=== PATIENT | female | born 1980 | race Caucasian/White ===

== ENCOUNTER 2021-07-09 10:11 | Outpatient (CLI) | payer OTHER, SELFPAY ==
--- NOTE | ~2021-07-09 | US_ITS ---
EXAMINATION: US pelvic complete w TV EXAM DATE: 07/09/2021 10:34 INDICATION: N92.0 - Excessive and frequent menstruation with regular ... TECHNIQUE: Pelvic transabdominal and transvaginal sonogram was performed. There are multiple graysca le and Doppler images available for interpretation. There is no prior study for comparison. FINDINGS: Uterus measures 8.0 x 3.7 x 4.6 cm, and is morphologically normal. Endometrial stripe stefano sures 10 mm, within normal limits. There is no free pelvic fluid. Right adnexa: The ovary measures 1.7 x 2.1 x 1.9 cm and is morphologically normal. Ovarian vascular f low confirmed. Left adnexa: The ovary is not identified. There is no adnexal mass. IMPRESSION: 1. Unremarkable pelvic ultrasound exam. Reviewed, dictated and finalized at location B. DRIVER
== END 2021-07-09 10:12 ==
PROVIDERS: PCP Obstetrics & Gynecology; Visit Provider Obstetrics & Gynecology
DX: N92.0 Excessive and frequent menstruation with regular cycle (principal)
CPT/HCPCS: 76830; 76856

== ENCOUNTER 2021-07-09 11:26 | Outpatient (CLI) | payer OTHER, SELFPAY ==
[2021-07-09 12:04] LABS: Hematocrit 42.8 % (37.0-47.0); Hemoglobin 14.2 g/dL (12.0-15.0); Mean Corpuscular HGB Conc 33.2 g/dl (32-36); Mean Corpuscular Hemoglobin 30.3 pg (26-34); Mean Corpuscular Volume 91.3 fl (80-100); Mean Platelet Volume 9.4 fl (7.4-10.4); Platelet Count Result 339 k/mm3 (150-375); Red Blood Count 4.69 M/mm3 (4.2-5.4); Red Cell Distribution Width 12.7 % (11.5-14.5); White Blood Count 10.5 K/mm3 (4.5-10.0)
== END 2021-07-09 11:27 | disposition home or self-care (01) ==
LOC: ANHLAB 11:29
PROVIDERS: PCP Obstetrics & Gynecology; Visit Provider Obstetrics & Gynecology
DX: N92.0 Excessive and frequent menstruation with regular cycle (principal)
CPT/HCPCS: 36415; 84443; 85027

== ENCOUNTER 2021-08-10 01:10 | Day surgery (SDC) | payer OTHER, SELFPAY ==
[2021-07-31 14:12] VITALS: BMI 28.6
--- NOTE | 2021-07-31 14:18 | PC.NURSE ---
Report to the Outpatient Waiting Room, entrance under the green pavilion located off [facility], at time 1100 on date 08/10/21. OR Time: 1300. - You and your visitor will be asked a series of questions to screen for COVID 19 for your protection. - A mask is required within the hospital. - Only one visitor is allowed at this time. Patient visitors will be guided where to wait when not with patient. Preoperative COVID Testing Requirements: No COVID Test needed if: (proof is required; if not received patient will have Rapid Test prior to entry) - Patient has received COVID Vaccine at least 14 days prior to procedure date or - Patient has positive COVID test result within last 90 days of surgery date. COVID Test needed if above criteria is not met If not COVID vaccinated a COVID test must be conducted within 72 hours of surgery and patient is asked to isolate self from time of testing until procedure. You will go to the [facility] for your COVID testing. The [facility] is located at the corner of [address] [facility]. You will only be called if COVID results are positive and your surgeon may reschedule your elective surgery date. Patients may have clear liquids (water, carbonated beverages, clear teas, apple juice) until 3 hours prior to surgery with a maximum of 20 ounces. - No food from midnight until time of surgery - Infants may have breast milk until 4 hours before surgery, infant formula 6 hours prior to surgery. - Children will be allowed to drink immediately following surgery. If applicable, please bring a bottle or sippy cup to assist with drinking. Juice, water, soda, and popsicles are readily available. For infants on formula, please bring formula the day of surgery. Pacifiers are allowed. Take the following medications with a SIP of water the morning of surgery: NONE Medications to discontinue per physician: N/A Date to take last dose: N/A Please no make-up, nail botswan[place], hairspray, perfume, deodorant, or body powder the day of surgery. No jewelry (including any body piercings) or valuables the day of surgery, leave them at home. Please take a shower or bath the night before, or the morning of, surgery with an antibacterial soap. Wear comfortable, loose fitting clothing. Children are encouraged to wear pajamas. - Jewelry must be removed prior to entering the operating room. Rings and piercings that are not removed may be cut off. - The hospital will not accept responsibility for valuables. - Please leave all valuables, including medications, at home the day of surgery. If you are going home after surgery, a licensed race car driver must drive you home. - NO public transportation without another adult. - We recommend that an adult stay with you for 24 hours following discharge. - We also recommend that you do not drive, make important decision, drink alcoholic beverages, or take any drugs that were not prescribed by your health care provider for at least 24 hours after your discharge time. For Pediatric surgeries, we recommend two adults accompany the child home (only one inside the building at this time). Follow any additional instructions given to you from your surgeon. Telephone instructions given to JEREMIAH DILLON and asked if any additional questions and then verbalized understanding. Patient advised to call surgeon office or pre surgery nurse liaison [phone] if any additional questions.
--- NOTE | 2021-08-06 15:44 | PM.IMHP ---
H&P: HPI History of Present Illness Date/Time: 08/06/21 15:44 monthly cycles lasting 6-7 days, very heavy the first couple days with severe cramping Chief Complaint: menorrhagia Review of Systems Review of Systems: All systems reviewed & are unremarkable except as noted in HPI and below PMFSH Past Medical History Medical History Allergies Gallbladder & bile duct stone with obstruction GERD (gastroesophageal reflux disease) History of blood transfusion 2003, with c/s Surgical History Surgical History History of cholecystectomy 2007? Previous section x2 Family History Family History Mother Cervical cancer Diabetes mellitus Hypertension Thyroid disorder Grandparent Leukemia grandmother Lung cancer Multiple myeloma grandfather Non-Hodgkin lymphoma grandfather Cerebrovascular accident Heart problem Sibling Hypertension Diabetes mellitus Social History Social History Smoking status: Current some day smoker Tobacco type: cigarettes Alcohol intake: current Alcohol use details: 2/MONTH Substance use: never Substance use type: does not use Spiritual care concerns: No Meds Home Medications and Allergies Home Medications Medication Instructions Recorded Confirmed Type fexofenadine 60 mg tablet 180 mg PO DAILY 07/24/20 07/31/21 History omeprazole 40 mg capsule,delayed 40 mg PO DAILY #30 cap 12/16/20 07/31/21 Rx release Allergies Allergy/AdvReac Type Severity Reaction Status Date / Time No Known Allergies Allergy Verified 07/31/21 14:11 Exam Const: General: healthy appearing, no acute distress, alert and awake Resp: Auscultation: clear to auscultation bilaterally Cardio: Rate: regular rate Rhythm: regular rhythm GI: Inspection: non-distended GI Palp: Yes Soft to palpation and No Tenderness to palpation present (GI) : Bimanual exam- vagina & uterus: normal bimanual exam, uterine size normal, uterine mobility normal, non-tender and soft Bimanual Exam- Adnexa, other: normal adnexae, no masses and No adnexal tenderness Extrem: General: no pedal edema and no calf tenderness Psych: Mental Status: mental status grossly normal Assessment and Plan Assessment and plan (1) Menorrhagia: Code(s): N92.0 - Excessive and frequent menstruation with regular cycle Status: Acute Assessment and Plan: She signed consent after risks, benefits, complications, and alternatives discussed for D&C, hysteroscopy, and endometrial ablation. She expressed understanding and wishes to proceed. s/p vasectomy
[2021-08-10] MEDS: LACTATED RINGERS 1,000 ML 30 ML IV CONT (11:34)
[2021-08-10 11:35] VITALS: BP 138/89; PULSE 100; RESP 16; TEMP 36.4; O2SAT 100
--- NOTE | 2021-08-10 12:11 | WPDHPUPDATE1 ---
History and Physical Update Update Date/Time: 08/10/21 12:11 History and Physical has been reviewed, including an updated exam of the patient. There are NO changes in the patient's condition. Risks, benefits, and alternatives have been discussed and questions answered. Patient agrees to proceed with procedure.
--- NOTE | 2021-08-10 12:17 | P.PNAN_ITS ---
Anes - Initial Pre Proc Eval Procedure: Operation Date: 08/10/21 13:00 Proposed Procedures p Hysteroscopy,Dilation and Curettage with Betty Endometrial Ablation - Altagracia Sinclair MD Date/Time: 08/10/21 12:17 Surgeon: Altagracia Sinclair MD Pre Op Diagnosis: menorrhaghia Patient Data Age: 41 Gender: F Height: 1.7 m Weight: 85.1 kg Last Vital Signs Temp 36.4 C 08/10/21 11:35 Pulse 100 08/10/21 11:35 Resp 16 08/10/21 11:35 BP 138/89 08/10/21 11:35 Pulse Ox 100 08/10/21 11:35 Allergies Allergy/AdvReac Type Severity Reaction Status Date / Time No Known Allergies Allergy Verified 08/10/21 11:14 Home Medications Medication Instructions Recorded Confirmed Type fexofenadine 60 mg tablet 180 mg PO DAILY 07/24/20 08/10/21 History omeprazole 40 mg capsule,delayed 40 mg PO DAILY #30 cap 12/16/20 08/10/21 Rx release Patient hx anesthesia problems: none Family hx anesthesia problems: none Results Review: All pre-operative results and documents have been reviewed as part of the pre-operative evaluation. [facility] Past Medical History Medical History Allergies Gallbladder & bile duct stone with obstruction GERD (gastroesophageal reflux disease) History of blood transfusion 2003, with c/s Surgical History Surgical History History of cholecystectomy 2007? Previous section x2 Family History Family History Mother Cervical cancer Diabetes mellitus Hypertension Thyroid disorder Grandparent Leukemia grandmother Lung cancer Multiple myeloma grandfather Non-Hodgkin lymphoma grandfather Cerebrovascular accident Heart problem Sibling Hypertension Diabetes mellitus Social History Social History Smoking status: Current some day smoker Tobacco type: cigarettes Alcohol intake: current Alcohol use details: 2/MONTH Substance use: never Substance use type: does not use Living arrangements: with family Spiritual care concerns: No Anes - Eval Final PreProcedure Day of Procedure 08/10/21 12:17 Patient weight: overweight Heart: regular rate and rhythm Lungs: clear to auscultation Airway: Mallampati scale Neurological: alert and oriented Last oral intake: >/= 8 hours ASA classification: II Emergent: no Anesthetic plan: proceed Anesthesia type and monitoring: general GIVS and standard monitoring Results Review: All pre-operative results and documents have been reviewed as part of the pre-operative evaluation. Informed Consent: The patient's anesthetic plan and its attendant risks and benefits were discussed with the patient/family/POA. Questions were solicited and answers provided to the satisfaction of the patient/family/POA.
[2021-08-10 13:53] VITALS: BP 124/76; PULSE 94; RESP 16; O2SAT 95
--- NOTE | 2021-08-10 13:55 | W.PM.PROC2 ---
Procedure Note - Detailed Date of Procedure 08/10/21 Pre-op Diagnosis menorrhaghia Post-op Diagnosis same Procedure Performed D&C, hysteroscopy, endometrial ablation Surgeon Altagracia Sinclair MD Anesthesia MAC Indications Heavy regular cycles Findings normal endometrial cavity Description of Procedure She was taken to the operating room where she was sedated and placed in the dorsal lithotomy position. A speculum was placed in the vagina. The anterior lip of the cervix was grasped with single-tooth tenaculum. The uterus sounded to 8 cm. The cervix was dilated to allow passage of the hysteroscope. Normal endometrial cavity was visualized with both tubal ostia identified. A sharp curettage was performed with the curettings sent for pathologic evaluation. A 8. Hegar dilator was used to measure the endocervical canal at 3 cm, yielding a cavity length of 5 cm. The Betty device was introduced. The cavity assessment passed. The cycle ran for 2 minutes. The device was removed. Second look was taken with the hysteroscope, which revealed an excellent appearing ablation. The hysteroscope was removed. The tenaculum was removed from the cervix. Both tenaculum sites were bleeding slightly. Pressure was held with ring forceps and Allis clamp until excellent hemostasis was assured. All instruments were removed from the vagina. She tolerated the procedure well. Sponge, lap, and instrument counts were correct x2. She was taken to the recovery room in stable condition. Estimated Blood Loss 10 Drains No Packing No Pathology yes Complications No immediate complications Condition stable Disposition PACU
[2021-08-10 14:05] VITALS: BP 126/82; BP 138/84; PULSE 60; PULSE 90; RESP 16; O2SAT 95
[2021-08-10 14:35] VITALS: BP 133/86; PULSE 77; RESP 16; O2SAT 97
[2021-08-10 15:05] VITALS: BP 138/84; PULSE 60; RESP 16
== END 2021-08-10 14:50 | disposition home or self-care (01) ==
PROVIDERS: PCP Internal Medicine; Visit Provider Obstetrics & Gynecology
PROC: 0U5B8ZZ Destruction of Endometrium, Via Natural or Artificial Opening Endoscopic (ICD-10-PCS; CPT 58563; principal; 2021-08-10 13:00)
DX: N92.0 Excessive and frequent menstruation with regular cycle (principal); K21.9 Gastro-esophageal reflux disease without esophagitis; F17.210 Nicotine dependence, cigarettes, uncomplicated
CPT/HCPCS: 58563; 88305; A9270; J1100; J2250; J2270; J2405; J2704; J7120

== ENCOUNTER 2022-06-29 17:23 | Emergency (ER) | payer OTHER, SELFPAY ==
[2022-06-29 17:35] VITALS: BP 128/82; PULSE 82; RESP 16; TEMP 36.4; O2SAT 100
--- NOTE | 2022-06-29 19:04 | ED.GENADULT ---
HPI - General Adult General Chief complaint: Upper Respiratory Infection Stated complaint: sore throat Source: patient Mode of arrival: ambulatory Limitations: no limitations History of Present Illness HPI narrative: Patient presents for evaluation of sore throat since yesterday. She has had strep pharyngitis in the past and this feels similar. She has experience a fever but denies chills, nausea, vomiting, diarrhea, or respiratory symptoms. No recent sick contacts to her knowledge. She does not smoke. She has been taking ibuprofen and Tylenol for symptoms. No additional complaints or concerns. Related Data Allergies Allergy/AdvReac Type Severity Reaction Status Date / Time No Known Allergies Allergy Verified 06/29/22 18:08 Review of Systems Review of Systems: CONSTITUTIONAL: Reports fever. Denies chills, or sweats. EYES: Denies visual changes, redness, or discharge. ENT:Reports sore throat. Denies rhinorrhea, congestion, or otalgia. CARDIOVASCULAR: Denies chest pain, palpitations, or edema. RESPIRATORY: Denies cough or dyspnea. GASTROINTESTINAL: Denies abdominal pain, nausea, vomiting, or diarrhea. GENITOURINARY: Denies dysuria or hematuria. SKIN: Denies rash or itching. MUSCULOSKELETAL: Denies back pain, joint pain, or myalgia. NEUROLOGIC: Denies headache, numbness, dizziness, or weakness. PSYCHIATRIC: Denies anxiety or depression. [facility] Past Medical History Medical History Allergies Gallbladder & bile duct stone with obstruction GERD (gastroesophageal reflux disease) History of blood transfusion 2003, with c/s Surgical History Surgical History History of cholecystectomy 2007? History of dilation and curettage 08/10/21 History of endometrial ablation 08/10/21 History of hysteroscopy 08/10/21 Previous section x2 Family History Family History Mother Cervical cancer Diabetes mellitus Hypertension Thyroid disorder Grandparent Leukemia grandmother Lung cancer Multiple myeloma grandfather Non-Hodgkin lymphoma grandfather Cerebrovascular accident Heart problem Sibling Hypertension Diabetes mellitus Social History Social History Smoking status: Current every day smoker Tobacco type: cigarettes Alcohol intake: current Alcohol use details: 2/MONTH Substance use: never Substance use type: does not use Spiritual care concerns: No Exam Narrative: GENERAL: Well-appearing, well-nourished, and in no acute distress. HEAD: Normocephalic, atraumatic. EYES: PERRLA and EOMI. ENT: Nares clear, no rhinorrhea or epistaxis. Mucous membranes moist. Bilateral tonsillar swelling with erythema but no exudate. Uvula is midline. Bilateral TMs pearly frey nonbulging NECK: Supple. No adenopathy or masses. No carotid bruits or JVD CHEST: Clear to auscultation. No respiratory distress. No wheezes rales or rhonchi HEART: Regular rate and rhythm. No murmur heard. Normal peripheral pulses. ABDOMEN: Soft, nontender, nondistended, normal active bowel sounds. EXTREMITIES: Normal range of motion. No edema. SKIN: Warm, dry, no rash. NEURO: No focal deficits. Alert and oriented x3. PSYCH: Normal mood and affect. Course Course Emergency Course: This is a 41-year-old female presenting for evaluation of sick symptoms. She has had strep in the past and this feels similar. Strep was negative. Discussed waiting for throat culture but patient would like to be treated today. I think this is reasonable based on her history. Will treat with amoxicillin. Requested Diflucan for after her antibiotics. Will provide script for that as well. Follow-up outpatient for further evaluation and treatment go to the ER for worsening symptoms.
== END 2022-06-29 19:07 | disposition home or self-care (01) ==
PROVIDERS: Emergency Provider Nurse Practitioner; PCP Nurse Practitioner
DX: J02.9 Acute pharyngitis, unspecified (principal); K21.9 Gastro-esophageal reflux disease without esophagitis
CPT/HCPCS: 87081; 87880; 99213; G0463

== ENCOUNTER 2022-10-16 09:11 | Outpatient (CLI) | payer OTHER, SELFPAY ==
[2022-10-16 09:48] LABS: Alanine Aminotransferase 35 U/L (6-35); Albumin Level 4.4 g/dL (3.5-5.1); Alkaline Phosphatase 82 U/L (38-126); Anion Gap 7 mmol/L (8-16); Aspartate Amino Transferase 27 U/L (14-36); Bilirubin,Total 0.5 mg/dL (0.2-1.3); Blood Urea Nitrogen 17 mg/dL (7-17); Calcium 8.9 mg/dL (8.4-10.2); Carbon Dioxide 25 mmol/L (22-30); Chloride 107 mmol/L (98-107); Cholesterol 179 mg/dL (0-200); Estimated Glomerular Filt Rate > 60; Glucose 99 mg/dL (65-110); HDL Direct 49 mg/dL; Potassium 4.2 mmol/L (3.4-5.0); Sodium 139 mmol/L (137-145); Triglycerides 99 mg/dL (<150)
[2022-10-16 09:59] LABS: LDL Cholesterol Direct 99 mg/dL
[2022-10-16 10:32] LABS: Vitamin D 25 Hydroxy 19.2 ng/mL
== END 2022-10-16 09:12 | disposition home or self-care (01) ==
LOC: ANHLAB 09:12
PROVIDERS: PCP Internal Medicine; Visit Provider Nurse Practitioner Family
DX: Z00.00 Encounter for general adult medical examination without abnormal findings (principal); R53.83 Other fatigue; E66.3 Overweight; Z79.899 Other long term (current) drug therapy
CPT/HCPCS: 36415; 80053; 80061; 82306; 84443

== ENCOUNTER 2023-05-27 10:58 | Outpatient (CLI) | payer OTHER, SELFPAY ==
--- NOTE | ~2023-05-27 | US_ITS ---
EXAMINATION: US thyroid DATE: 05/27/2023 11:22 INDICATION: [place]. TECHNIQUE: Multiple ultrasound images of the thyroid were obtained. COMPARISON: None. FINDINGS: The right thyroid lobe measures 6.3 x 1.2 x 1.2 cm. The left thyroid lobe measures 5.2 x 1.6 x 2.0 c m. In the left thyroid lobe, there is a 1.6 cm mixed cystic and solid, hypoechoic, wider than tall n odule with smooth margin without echogenic foci (TI-RADS TR3). IMPRESSION: 1. Thyroid nodule. Thyroid ultrasound is recommended in one year. Reviewed, dictated and finalized at location E.
== END 2023-05-27 10:59 | disposition home or self-care (01) ==
PROVIDERS: PCP Nurse Practitioner Family; Visit Provider Nurse Practitioner Family
DX: E04.1 Nontoxic single thyroid nodule (principal); R23.2 Flushing; R53.83 Other fatigue
CPT/HCPCS: 76536

== ENCOUNTER 2023-08-26 13:20 | Outpatient (CLI) | payer OTHER, SELFPAY ==
[2023-08-26 14:37] LABS: Basophils Absolute Auto 0.1 K/mm3 (0.0-0.1); Basophils Percent Auto 0.5 % (0.2-1.2); Eosinophils Absolute Auto 0.1 K/mm3 (0-0.3); Eosinophils Percent Auto 1.4 % (0-4.4); Hematocrit 42.3 % (37.0-47.0); Hemoglobin 13.5 g/dL (12.0-15.0); Immature Granulocyte Absolute 0.02 K/mm3 (0.00-0.031); Immature Granulocyte Percent A 0.2 % (0-0.5); Lymphocytes Absolute Auto 2.74 K/mm3 (0.9-3.2); Lymphocytes Percent Auto 26.9 % (18.3-44.2); Mean Corpuscular HGB Conc 31.9 g/dl (32-36); Mean Corpuscular Hemoglobin 28.5 pg (26-34); Mean Corpuscular Volume 89.4 fl (80-100); Mean Platelet Volume 9.8 fl (7.4-10.4); Monocytes Absolute Auto 0.7 K/mm3 (0.1-0.6); Monocytes Percent Auto 7.2 % (2.6-8.5); Neutrophils Absolute Auto 6.5 K/mm3 (1.3-6.7); Neutrophils Percent Auto 63.8 % (45.5-73.1); Platelet Count Result 380 k/mm3 (150-375); Red Blood Count 4.73 M/mm3 (4.2-5.4); Red Cell Distribution Width 12.3 % (11.5-14.5); White Blood Count 10.2 K/mm3 (4.5-10.0)
[2023-08-26 15:09] LABS: Free T4 Free Thyroxine 1.09 ng/mL (0.78-2.19)
[2023-08-29 05:04] LABS: Thyroid Peroxidase Antibodies <1 IU/mL (<9)
== END 2023-08-26 13:21 | disposition home or self-care (01) ==
PROVIDERS: PCP Nurse Practitioner Family; Visit Provider Nurse Practitioner Family
DX: R23.2 Flushing (principal); R12 Heartburn; R53.83 Other fatigue; E66.3 Overweight; G47.9 Sleep disorder, unspecified; Z79.899 Other long term (current) drug therapy
CPT/HCPCS: 36415; 84439; 84443; 85025; 86376

== ENCOUNTER 2024-03-19 10:32 | Outpatient (CLI) | payer OTHER, SELFPAY ==
--- NOTE | ~2024-03-19 | US_ITS ---
US pelvic complete w TV Ordering provider: Denise Wesley MD History: . N93.9 - Abnormal uterine and vaginal bleeding, unspecified . Comparison: None. Technique: Transabdominal and endovaginal ultrasound of the pelvis (Doppler ultrasound interrogation techniques used as needed for this exam.) FINDINGS: CERVIX: Normal. UTERUS: Measures 8.4x 4x 5.9 cm in length which is within normal limits and is anteverted. No myomet rial masses. ENDOMETRIUM: Normal in thickness measuring 10 mm. No endometrial masses, cysts or fluid. CUL DE SAC: No free fluid. RIGHT OVARY: Normal in size measuring 1.7x 2x 1.2 cm. Normal echotexture. Doppler vascular flow prese nt. LEFT OVARY: Normal in size measuring 4.3x 2.5x 3.9 cm.. Normal echotexture. Doppler vascular flow pre sent. 2 cysts are seen with the largest measures 2.9 x 2.3 x 2.3 cm. ADNEXA: Normal. No mass. IMPRESSION: Right ovarian cysts. Otherwise, normal pelvic ultrasound. Reviewed, dictated and finalized at location A.
== END 2024-03-19 10:33 | disposition home or self-care (01) ==
LOC: ANHIMG 10:32
PROVIDERS: PCP Nurse Practitioner Family; Visit Provider Obstetrics & Gynecology
DX: N93.9 Abnormal uterine and vaginal bleeding, unspecified (principal); N83.291 Other ovarian cyst, right side
CPT/HCPCS: 76830; 76856

== ENCOUNTER 2024-03-24 08:15 | Emergency (ER) | payer OTHER, SELFPAY ==
[2024-03-24 08:20] VITALS: BP 138/82; PULSE 106; RESP 16; TEMP 36; O2SAT 100
[2024-03-24 08:56] LABS: EDMONONEGPOS Negative; EDSTREPNEGPOS1 Presumptive Negative
--- NOTE | 2024-03-24 08:59 | ED.GENADULT ---
HPI - General Adult General Chief complaint: Upper Respiratory Infection Stated complaint: Fever/Sore Throat/Skin Sore Lip Source: patient Mode of arrival: ambulatory Limitations: no limitations History of Present Illness HPI narrative: Patient presents for evaluation of a sore throat for last 3 days. She reports fever and chills but denies any cough, shortness of breath, nausea, vomiting, diarrhea. No recent sick contacts to her knowledge. She now has blistered lesions to her lower lip. No history of HSV. She does not smoke. She is taking Tylenol for symptoms with mild improvement thereafter. Related Data Allergies Allergy/AdvReac Type Severity Reaction Status Date / Time No Known Allergies Allergy Verified 03/24/24 08:51 Review of Systems Review of Systems: CONSTITUTIONAL: Reports fever and chills. EYES: Denies visual changes, redness, or discharge. ENT: Reports sore throat and blister to lower lip. Denies otalgia CARDIOVASCULAR: Denies chest pain, palpitations, or edema. RESPIRATORY: Denies cough or dyspnea. GASTROINTESTINAL: Denies abdominal pain, nausea, vomiting, or diarrhea. GENITOURINARY: Denies dysuria or hematuria. SKIN: Denies rash or itching. MUSCULOSKELETAL: Denies back pain, joint pain, or myalgia. NEUROLOGIC: Denies headache, numbness, dizziness, or weakness. PSYCHIATRIC: Denies anxiety or depression. [facility] Past Medical History Medical History Allergies Gallbladder & bile duct stone with obstruction GERD (gastroesophageal reflux disease) History of blood transfusion 2003, with c/s Surgical History Surgical History History of cholecystectomy 2007? History of dilation and curettage 08/10/21 History of endometrial ablation 08/10/21 History of hysteroscopy 08/10/21 Previous section x2 Family History Family History Mother Cervical cancer, Onset Age: 40 Diabetes mellitus Hypertension Thyroid disorder Thyroid cancer Grandparent Leukemia grandmother Lung cancer Multiple myeloma grandfather Non-Hodgkin lymphoma grandfather Cerebrovascular accident Heart problem Sibling Hypertension Diabetes mellitus Social History Social History Smoking status: Former smoker Tobacco type: cigarettes Smoking end date: 08/22/20 Alcohol intake: current Alcohol use details: socially Substance use: never Substance use type: does not use Lack of Transportation: No Lack of Food: Never True Current Housing: I Have Housing Concerned About Future Housing: No Difficulty Paying Gas/Electric Bills: No Difficulty Paying for Meds: No Currently Unemployed: No Education: High School Diploma/GED Difficulty w/ Childcare or Family Care: No Living arrangements: with family Occupation/Education: occupation Gender identity (if verbalized by the patient): Female Sexual Orientation (if Verbalized by the Patient): Straight or Heterosexual Spiritual care concerns: No Exam Narrative: GENERAL: Well-appearing, well-nourished, and in no acute distress. HEAD: Normocephalic, atraumatic. EYES: PERRLA and EOMI. ENT: Nares clear, no rhinorrhea or epistaxis. Mucous membranes moist. There is posterior pharyngeal erythema with tonsillar enlargement white exudate. Uvula is midline. There is several blistered lesions to the lower lip. Bilateral TMs pearly frey nonbulging NECK: Supple. No adenopathy or masses. No carotid bruits or JVD CHEST: Clear to auscultation. No respiratory distress. No wheezes rales or rhonchi HEART: Regular rate and rhythm. No murmur heard. Normal peripheral pulses. ABDOMEN: Soft, nontender, nondistended, normal active bowel sounds. EXTREMITIES: Normal range of motion. No brandi
[2024-03-30 04:23] LABS: Source LIP
== END 2024-03-24 09:00 | disposition home or self-care (01) ==
PROVIDERS: Emergency Provider Nurse Practitioner; PCP Nurse Practitioner Family
DX: J02.9 Acute pharyngitis, unspecified (principal); Z87.891 Personal history of nicotine dependence; K21.9 Gastro-esophageal reflux disease without esophagitis
CPT/HCPCS: 36416; 86308; 87081; 87255; 87880; 99213; G0463

== ENCOUNTER 2024-12-14 13:35 | Outpatient (CLI) | payer OTHER, SELFPAY ==
--- NOTE | ~2024-12-14 | US_ITS ---
EXAMINATION: US thyroid DATE: 12/14/2024 14:09 INDICATION: Follow-up left-sided thyroid nodule. Family history of thyroid cancer TECHNIQUE: Multiple ultrasound images of the thyroid were obtained. COMPARISON: 05/27/2023 FINDINGS: The right thyroid lobe measures 4.5 x 1.1 x 1.8 cm. The left thyroid lobe measures 4.7 x 1.2 x 1.6 cm. The isthmus measures 0.3cm in anterior to posterior dimension. Within the left lobe of the thyroid gland is a 14 x 8 x 12 mm nodule, decreased in size from previous examination dated 05/27/2023 when it measured 16 x 10 x 15 mm: Composition -mixed cystic and solid (1) Echogenicity -hypoechoic (2) Shape - wider than tall Margin - smooth Echogenic foci - none. = TR3 Mildly suspicious Greater than or equal to 1.5 cm: Follow-up Greater than or equal to 2.5 cm: FNA There is otherwise normal echotexture and echogenicity throughout the remainder of the thyroid gland. No additional discrete nodules identified. Normal vascular flow is present. IMPRESSION: TR3 nodule in the left lobe of the thyroid gland measuring 14mm in greatest dimension. This nodule is mildly suspicious but does not meet size criteria for either follow-up or FNA. While follow-up is not recommended , it may be performed. Reviewed, dictated and finalized at location A. IMPRESSION: TR3 nodule in the left lobe of the thyroid gland measuring 14mm in greatest dim ension. This nodule is mildly suspicious but does not meet size criteria for either fol low-up or FNA. While follow-up is not recommended , it may be performed.
== END 2024-12-14 13:36 | disposition home or self-care (01) ==
LOC: ANHIMG 13:35
PROVIDERS: PCP Nurse Practitioner Family; Visit Provider Nurse Practitioner Family
DX: E04.1 Nontoxic single thyroid nodule (principal)
CPT/HCPCS: 76536

== ENCOUNTER 2025-01-09 07:33 | Outpatient (CLI) | payer OTHER, SELFPAY ==
[2025-01-09 07:55] LABS: Basophils Absolute Auto 0.1 K/mm3 (0.0-0.1); Basophils Percent Auto 0.9 % (0.2-1.2); Eosinophils Absolute Auto 0.1 K/mm3 (0-0.3); Eosinophils Percent Auto 0.9 % (0-4.4); Hematocrit 42.4 % (37.0-47.0); Hemoglobin 13.8 g/dL (12.0-15.0); Immature Granulocyte Absolute 0.01 K/mm3 (0.00-0.031); Immature Granulocyte Percent A 0.1 % (0-0.5); Lymphocytes Absolute Auto 2.07 K/mm3 (0.9-3.2); Lymphocytes Percent Auto 29.6 % (18.3-44.2); Mean Corpuscular HGB Conc 32.5 g/dl (32-36); Mean Corpuscular Hemoglobin 28.4 pg (26-34); Mean Corpuscular Volume 87.2 fl (80-100); Mean Platelet Volume 9.2 fl (7.4-10.4); Monocytes Absolute Auto 0.5 K/mm3 (0.1-0.6); Monocytes Percent Auto 7.4 % (2.6-8.5); Neutrophils Absolute Auto 4.3 K/mm3 (1.3-6.7); Neutrophils Percent Auto 61.1 % (45.5-73.1); Platelet Count Result 368 k/mm3 (150-375); Red Blood Count 4.86 M/mm3 (4.2-5.4); Red Cell Distribution Width 12.5 % (11.5-14.5)
[2025-01-09 08:30] LABS: Iron 125 ug/dL (37-170)
[2025-01-09 08:41] LABS: Percent Iron Saturation 35 % (20-50)
[2025-01-09 09:23] LABS: Free T4 Free Thyroxine 1.13 ng/dL (0.78-2.19)
[2025-01-09 11:36] LABS: Alanine Aminotransferase 23 U/L (6-35); Albumin Level 4.4 g/dL (3.5-5.1); Alkaline Phosphatase 62 U/L (38-126); Anion Gap 9 mmol/L (4-12); Aspartate Amino Transferase 29 U/L (14-36); Bilirubin,Total 0.5 mg/dL (0.2-1.3); Blood Urea Nitrogen 16 mg/dL (7-17); Calcium 9.5 mg/dL (8.4-10.2); Carbon Dioxide 23 mmol/L (22-30); Chloride 105 mmol/L (98-107); Cholesterol 227 mg/dL (0-200); Estimated Glomerular Filt Rate > 60; Glucose 110 mg/dL (65-110); HDL Direct 60 mg/dL; Potassium 4.2 mmol/L (3.4-5.0); Sodium 137 mmol/L (137-145); Triglycerides 161 mg/dL (<150)
[2025-01-09 11:47] LABS: LDL Cholesterol Direct 117 mg/dL
[2025-01-09 12:47] LABS: Folic Acid 17.4 ng/mL (2.76->20)
== END 2025-01-09 07:34 | disposition home or self-care (01) ==
LOC: ANHLAB 07:35
PROVIDERS: PCP Nurse Practitioner Family; Visit Provider Nurse Practitioner Family
DX: Z00.00 Encounter for general adult medical examination without abnormal findings (principal); Z13.220 Encounter for screening for lipoid disorders; N93.9 Abnormal uterine and vaginal bleeding, unspecified; D64.9 Anemia, unspecified
CPT/HCPCS: 36415; 80053; 80061; 82607; 82728; 82746; 83540; 83550; 84439; 84443; 84481; 85025